=== PATIENT | female | born 1960 | race Caucasian/White ===

== ENCOUNTER 2016-09-17 05:26 | Emergency (ER) | payer OTHER ==
[~2016-09-17] VITALS: Ht 160 cm; Wt 72.6 kg
--- NOTE | 2016-09-17 05:26 | NUR ---
PT [facility], PRE[facility]. TAKEN TO BED 6
[2016-09-17 05:30] VITALS: BP 134/94
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
--- NOTE | 2016-09-17 05:41 | NUR ---
Dr. Toscano evaluating patient at bedside.
[2016-09-17 05:50] VITALS: BP 134/94
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
== END 2016-09-17 05:50 ==
LOC: MED 05:26
DX: Z02.89 Encounter for other administrative examinations (principal); M54.5 Low back pain

== ENCOUNTER 2019-04-14 20:15 | Emergency (ER) | payer OTHER ==
[~2019-04-14] VITALS: Ht 160 cm; Wt 66.4 kg
[2019-04-14 20:27] VITALS: BP 110/66
[2019-04-14] MEDS ORDERED: SODIUM CHLORIDE FLUSH 10 ML SYR IVF STA (20:30)
--- NOTE | 2019-04-14 20:30 | NUR ---
TONI [place]ALLON. VSS. OKAY TO WAIT IN LOBBY.
--- NOTE | 2019-04-14 21:04 | NUR ---
PT AMBULATED TO ER BED 11
[2019-04-14 21:13] LABS: BASOPHILS % (AUTO) 0.3 % (0.0-2.0); EOSINOPHILS # (AUTO) 0.1 K/uL (0-0.4); HEMATOCRIT 40.9 % (36-48); HEMOGLOBIN 13.8 g/dL (12.0-16.0); LYMPHOCYTES # (AUTO) 0.5 K/uL (2.5-16.5); LYMPHOCYTES % (AUTO) 4.2 % (20.5-51.1); MEAN CORPUSCULAR HEMOGLOBIN 29 pg (27-31); MEAN CORPUSCULAR HGB CONC 34 g/dL (33-37); MEAN CORPUSCULAR VOLUME 85.2 fL (80-94); MONOCYTES # (AUTO) 0.6 K/uL (0.8-1.0); MONOCYTES % (AUTO) 4.5 % (1.7-9.3); NEUTROPHILS # (AUTO) 11.5 K/uL (1.8-7.7); PLATELET COUNT (AUTO) 199 K/uL (140-450); RED CELL DISTRIBUTION WIDTH 14.8 % (11.6-13.7); WHITE BLOOD COUNT (AUTO) 12.8 K/uL (4.8-10.8)
[2019-04-14 21:25] LABS: APPEARANCE,URINE CLEAR (CLEAR); BILIRUBIN,URINE NEGATIVE (NEGATIVE); BLOOD, URINE NEGATIVE (NEGATIVE); COLOR,URINE YELLOW (YELLOW); LEUKOCYTE ESTERASE ,URINE 3+ (NEGATIVE); NITRITE, URINE NEGATIVE (NEGATIVE); UGLUCOSE NEGATIVE (NEGATIVE)
[2019-04-14 21:28] LABS: ANION GAP 10.6 (8-16); CARBON DIOXIDE 32.6 mmol/L (21-32); CREATININE 0.9 mg/dL (0.6-1.3); POTASSIUM 4.2 mmol/L (3.5-5.1)
[2019-04-14 21:34] LABS: ALBUMIN 4.3 g/dL (3.4-5.0); TOTAL BILIRUBIN 1.7 mg/dL (0.0-1.0)
[2019-04-14 21:41] LABS: RBC,URINE 0-5 /HPF (0-5); WBC,URINE 20-60 /HPF (0-5)
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
--- NOTE | 2019-04-14 21:51 | NUR ---
DR. MAHARAJ BEDSIDE EVALUATING PT
[2019-04-14] MEDS ORDERED: MORPHINE SULFATE 2 MG/ML SYR IVP ONE ×2 (22:00→22:10)
--- NOTE | 2019-04-14 22:50 | NUR ---
PT CONSENT FOR CT SCAN SIGNED.
--- NOTE | 2019-04-14 23:05 | NUR ---
PT STATED " I HAVE NO MORE PAIN." VSS AT THIS TIME. WILL CONTINUE TO MONITOR.
--- NOTE | 2019-04-14 23:19 | NUR ---
PT TAKEN TO CT VIA WHEELCHAIR
[2019-04-15 01:10] VITALS: BP 116/59
--- NOTE | 2019-04-15 01:10 | NUR ---
DISCHARGE PAPERS GIVEN TO PT. NO C/O N/V OR PAIN. VSS. RX OF KEFLEX AND OMEPERAZOLE GIVEN INSTRUCTED TO F/U WITH PCP AND WHEN TO RETURN TO ER. PT VERBALLIZED UNDERSTANDING OF DC INSTRUCTIONS. ALL QUESTIONS ANSWERED.
== END 2019-04-15 01:10 | disposition home or self-care (01) ==
LOC: MED 20:15
DX: K29.70 Gastritis, unspecified, without bleeding (principal); N39.0 Urinary tract infection, site not specified; R73.03 Prediabetes; E78.5 Hyperlipidemia, unspecified
CPT/HCPCS: 36415; 74177; 80053; 81001; 81025; 83690; 85025; 87086; 96374; 99284; J2270; Q9967

== ENCOUNTER 2021-06-02 10:30 | Emergency (ER) | payer OTHER ==
[~2021-06-02] VITALS: Ht 160 cm; Wt 68.0 kg
[2021-06-02 10:37] VITALS: BP 109/74
--- NOTE | 2021-06-02 10:44 | NUR ---
[facility]: RIGHT 20/20, LEFT 20/100, BOTH EYES 20/50
--- NOTE | 2021-06-02 10:47 | NUR ---
BIB SELF C/O 8/10 RIGHT EYE PAIN X 1 YEAR. BLOOD SUGAR 153 AT THIS TIME. VA: RIGHT 20/20, LEFT 20/100, BOTH EYES 20/50 PMH: DM, HLD
[2021-06-02] MEDS ORDERED: FLUORESCEIN OPTH STRIP 1 MG OP ONE (12:05)
[2021-06-02] MEDS ORDERED: TETRACAINE 1% 2 ML AMP INJ ONE (12:05)
[2021-06-02] MEDS ORDERED: TETRACAINE HCL/PF 0.5% OPTH 4 ML BTL ONE (12:55)
[2021-06-02] MEDS ORDERED: TOMOMETER 1 DEV DEV MC ONE (12:56)
[2021-06-02] MEDS ORDERED: TETRACAINE HCL/PF 0.5% OPTH 4 ML BTL OP ONE (13:20)
[2021-06-02] MEDS ORDERED: ACET-10509 PO (13:39)
[2021-06-02 13:48] VITALS: BP 116/82
== END 2021-06-02 13:48 | disposition home or self-care (01) ==
LOC: MED 10:30
DX: H53.8 Other visual disturbances (principal); E78.5 Hyperlipidemia, unspecified; Z79.899 Other long term (current) drug therapy
CPT/HCPCS: 99283